=== PATIENT | female | born 1990 | race Caucasian/White ===

== ENCOUNTER 2017-06-02 09:03 | Emergency (ER) | payer SELFPAY ==
[2017-06-02 09:10] VITALS: BP 132/76
--- NOTE | 2017-06-02 10:25 | UC ---
Pardeep Leong Angela, scribed for Jason Hernandez MD on 06/02/17 at 0926 . General HPI - HPI Summary HPI Summary: This pt is a 26 y/o female presenting to [facility] c/o left neck gland swelling x2 days, worse today. Pt reports it is painful to swallow, speak, and eat secondary to swelling. She denies dry mouth, fever, chills, trauma, cavities, ear pain, TMJ pain, rhinorrhea. - History of Current Complaint Chief Complaint: UCGeneralIllness Stated Complaint: GLAND PAIN Time Seen by Provider: 06/02/17 09:15 Hx Obtained From: Patient Hx Last Menstrual Period: bcp Onset/Duration: Lasting Days Timing: Constant Aggravating: Speaking, eating, and swallowing (movement of jaw). Associated Signs & Symptoms: Negative: Fever, Nausea, Vomiting - Allergy/Home Medications Allergies/Adverse Reactions: Allergies Allergy/AdvReac Type Severity Reaction Status Date / Time Sulfa Antibiotics Allergy Unknown Unknown Verified 06/16/16 11:33 Reaction Details PMH/Surg Hx/FS Hx/Imm Hx Other Cardiovascular History: Tachycardia, palpitations Psychological History: Anxiety - Surgical History Surgical History: Yes Surgery Procedure, Year, and Place: appy; left knee x 2; laparoscopic to diagnose endometriosis - Family History Known Family History: Positive: Cardiac Disease, Hypertension, Diabetes - Social History Alcohol Use: Rare Substance Use Type: None Smoking Status (MU): Never Smoked Tobacco Have You Smoked in the Last Year: No - Immunization History Most Recent Influenza Vaccination: no Most Recent Tetanus Shot: up to date Most Recent Pneumonia Vaccination: no Review of Systems Constitutional: Negative Skin: Negative Eyes: Negative Respiratory: Negative Cardiovascular: Negative Gastrointestinal: Negative Genitourinary: Negative Motor: Negative Neurovascular: Negative Neurological: Negative All Other Systems Reviewed And Are Negative: Yes Physical Exam Triage Information Reviewed: Yes Vital Signs: Initial Vital Signs Temp 97 F 06/02/17 09:07 Pulse 97 06/02/17 09:07 Resp 16 06/02/17 09:07 BP 132/76 06/02/17 09:07 Pulse Ox 100 06/02/17 09:07 Vital Signs Reviewed: Yes - Additional Comments The patient is well-nourished in no acute distress and in no acute pain. The skin is warm and dry and skin color reflects adequate perfusion. HEENT: The head is normocephalic and atraumatic. The pupils are equal and reactive. The conjunctivae are clear and without drainage. Nares are patent and without drainage. Mouth reveals moist mucous membranes and the throat is without erythema and exudate. The external ears are intact. The ear canals are patent and without drainage. The tympanic membranes are intact. There is tenderness over the left submandibular gland, it appears to be swollen, not red and not warm. There is swelling under the mandible, no fluid collection. There is slight left TMJ tenderness. There is no mastoid tenderness. Neck is supple with full range of motion and non-tender. There are no carotid bruits. There is no neck vein distension. Respiratory: Chest is non-tender. Lungs are clear to auscultation and breath sounds are symmetrical and equal. Cardiovascular: Hear is regular rate and rhythm. There is no murmur or rub auscultated. There is no peripheral edema and pulses are symmetrical and equal. Musculoskeletal: There is no back pain noted. Extremities are non-tender with full range of motion. There is good capillary refill. Neurological: Patient is alert and oriented to person, place and time. The patient has symmetrical motor strength in all four extremities. Psychiatric: The patient has an appropriate affect and does not exhibit any anxiety or depression. Course/Dx - Differential Dx - Multi-Symptom Provider Diagnoses: Submandibular adenitis. Cellulitis Discharge - Discharge Plan Condition: Stable Disposition: HOME Prescriptions: Amoxicillin/Clavulanate TAB* [Augmentin TAB 875*] 875 mg PO BID #20 tab HYDROcodone/ACETAMIN 5-325 MG* [[place] 5-325 TAB*] 1 tab PO Q6H PRN #20 tab MDD 4 PRN Reason: pain Patient Education Materials: Sialoadenitis (ED) Referrals: Shyla Hudson MD [Primary Care Provider] - Additional Instructions: Please follow up with your primary care physician to assure your symptoms are improving. The documentation as recorded by the Pardeep arechiga Angela accurately reflects the service I personally performed and the decisions made by , Jason Hernandez MD.
== END 2017-06-02 09:29 | disposition home or self-care (01) ==
LOC: UCEAST 09:03
DX: K11.20 Sialoadenitis, unspecified (principal); L03.221 Cellulitis of neck; R00.0 Tachycardia, unspecified; Z88.2 Allergy status to sulfonamides
CPT/HCPCS: 99212; G0463